=== PATIENT | male | born 1990 | race African-American/Black ===

== ENCOUNTER 2021-01-15 20:11 | Emergency (ER) | payer MEDICARE, OTHER ==
[~2021-01-15] VITALS: Ht 182.9 cm; Wt 91.0 kg
[2021-01-15] MEDS ORDERED: KETOROLAC 30MG/ML VIAL IM ONE (21:00)
[2021-01-15] MEDS ORDERED: DIAZEPAM 5 MG TABLET PO ONE (21:45)
[2021-01-15] MEDS ORDERED: IBUP-2029 MT (23:04)
[2021-01-15] MEDS ORDERED: CYCL5TAB MT (23:04)
[2021-01-15 23:20] VITALS: BP 125/73
== END 2021-01-15 23:21 | disposition home or self-care (01) ==
LOC: ER 20:11
DX: M62.830 Muscle spasm of back (principal)
CPT/HCPCS: 71045; 96372; 99283; J1885

== ENCOUNTER 2021-06-06 10:55 | Emergency (ER) | payer MEDICARE, OTHER ==
[~2021-06-06] VITALS: Ht 180.3 cm; Wt 96.0 kg
[~2021-06-06 10:55] MED LIST: CYCL5TAB MT; IBUP-2029 MT
[2021-06-06] MEDS ORDERED: METHOCARBAMOL 500MG TABLET PO ONE (11:15)
[2021-06-06] MEDS ORDERED: HYDROCODONE/ACETAMINOPHEN 5/325MG TABLET PO ONE (11:15)
[2021-06-06] MEDS ORDERED: NAPR-681 MT (12:02)
[2021-06-06] MEDS ORDERED: METH-773 MT (12:02)
[2021-06-06 12:10] VITALS: BP 121/68
== END 2021-06-06 12:12 | disposition home or self-care (01) ==
LOC: ER 10:55
DX: M54.50 Low back pain, unspecified (principal); X50.1XXA Overexertion from prolonged static or awkward postures, initial encounter; Y93.01 Activity, walking, marching and hiking; Y92.9 Unspecified place or not applicable
CPT/HCPCS: 99283

== ENCOUNTER 2021-10-20 20:28 | Emergency (ER) | payer MEDICARE, OTHER ==
[~2021-10-20] VITALS: Ht 177.8 cm; Wt 90.0 kg
[~2021-10-20 20:28] MED LIST changes: +METH-773 MT; +NAPR-681 MT
[2021-10-20] MEDS ORDERED: OLAN10TA72 PO (20:37)
[2021-10-20 22:15] VITALS: BP 127/88
[2021-10-20] MEDS ORDERED: TRAMADOL 50MG TABLET PO ONE (22:15)
[2021-10-20] MEDS ORDERED: IBUPROFEN 800MG TABLET PO ONE (22:15)
[2021-10-20] MEDS ORDERED: IBUP-2030 MT (23:28)
[2021-10-20] MEDS ORDERED: CYCL25PO15 MT (23:28)
== END 2021-10-20 23:49 | disposition home or self-care (01) ==
LOC: ER 20:28
DX: S00.83XA Contusion of other part of head, initial encounter (principal); V49.59XA Passenger injured in collision with other motor vehicles in traffic accident, initial encounter; Y93.89 Activity, other specified; Y92.89 Other specified places as the place of occurrence of the external cause; Y99.8 Other external cause status; Z79.899 Other long term (current) drug therapy
CPT/HCPCS: 99283